=== PATIENT | female | born 2005 | race Caucasian/White ===

== ENCOUNTER 2023-09-11 09:53 | Emergency (ER) | payer BC, SELFPAY ==
[2023-09-11 09:53] VITALS: BP 114/61; PULSE 79; RESP 16; TEMP 36.1; O2SAT 98; BMI 22.3
--- NOTE | 2023-09-11 10:01 | EX.ED.DYSGE1 ---
HPI History of Present Illness Chief Complaint: Fever Informant: patient Onset/Context/Timing Onset: Weeks (1.5) Context: Gradual Onset Timing: Continuous Quality: Aching Location: Head, neck Worsened by: Nothing Relieved by: Nothing Narrative Narrative: Patient presents with a fever that has been constant for the past 1-1/2 weeks. Patient states it came on gradually. Patient admits to a headache and neck pain. Patient states her fever was up to 103.4 at home. Patient did not take any Tylenol or ibuprofen. Patient was afebrile here. Patient went to the urgent care today. Patient was then referred to the emergency department for possible meningitis. Patient admits to a mild cough. Patient states nothing makes her pain better and nothing makes it worse. Patient admits to some nausea but denies any vomiting. [facility] Medical History (Updated 09/11/23 @ 12:[address] Jeronimo Moreno DO) Anxiety Asthma Depression Medical History no medical history no medical history Home Medications escitalopram oxalate 10 mg tablet (Lexapro) 10 mg PO DAILY 09/11/23 [History Last Taken 09/11/23] Allergy/AdvReac Type Severity Reaction Status Date / Time Penicillins Allergy Mild Hives Verified 09/11/23 09:55 Surgical History no surgical history no surgical history Social History Smoking Status: Never smoker ROS ROS ED Constitutional Constitutional ED: Reports fever(s); Denies chills Eyes Eyes: Reports blurry vision; Denies diplopia ENT ENT ED: Denies rhinorrhea or sore throat Cardiovascular Cardiovascular: Denies chest pain or palpitations Respiratory/Chest Respiratory/Chest: Reports cough; Denies dyspnea Gastrointestinal Gastrointestinal: Reports nausea; Denies vomiting Genitourinary Genitourinary ED: Denies dysuria or hematuria Musculoskeletal Musculoskeletal: Reports neck pain; Denies back pain Integumentary Denies abscess or rash Neurologic Neurologic: Reports headache(s); Denies weakness Allergic/Immunologic Allergic/Immunologic ED: Denies mouth swelling or urticaria EXAM Physical Exam Const Vital Signs: 09/11/23 09:53 09/11/23 10:44 09/11/23 12:29 Temperature 96.9 F L Temperature Source Temporal Pulse Rate 79 51 L Respiratory Rate 16 16 Respiratory Effort Normal Respiratory Pattern Normal Blood Pressure 114/61 112/68 Blood Pressure Mean 78 82 Pulse Ox 98 100 Oxygen Delivery Method Room Air Room Air Positive well nourished and well developed General Appearance ED: well developed and NAD HEENT Reports moist mucous membranes Neck supple and no JVD Neck Narrative: There is mild tenderness to palpation over the cervical paraspinal muscles. There is full range of motion of the cervical spine. There are no meningeal signs noted. Resp normal respiratory effort and clear to auscultation bilaterally Cardio regular rate and regular rhythm GI non-tender and non-distended Palpation: soft Neuro oriented x3, CN's II-XII intact bilaterally and no sensory deficits noted Sensorium / Orientation: alert Motor Exam: strength 5/5 throughout Psych mental status grossly normal MDM MDM MDM Narrative Medical decision making narrative: Differential diagnosis includes viral illness, pharyngitis, pneumonia, and dehydration. COVID-19, influenza, and RSV PCR will be obtained to assess for viral infection. Chest x-ray will be obtained to assess for pneumonia. Rapid strep will be obtained to assess for strep pharyngitis. Lab Data Lab results narrative: COVID-19 PCR was reviewed and was negative. Influenza PCR was reviewed and was negative for influenza a and influenza B. RSV PCR was reviewed and was negative. Rapid strep PCR was reviewed and was negative. Radiography Chest X-Ray - ED: 2 View, Read by ED Physician, Read by Radiologist and No Acute Disease Diagnostic Testing: Clinical Impression(s) from Imaging Studies Chest X-Ray 09/11/23 10:42 IMPRESSION: Normal x-ray examination of the chest. Electronically Signed: Rajesh Gallo MD at 12:15 EST , PA and lateral chest x-ray was obtained. There are 2 views. On my independent interpretation, lung olivares are clear. There is normal cardiac silhouette. Bony thorax is normal. There is no acute process noted. Radiologist also interpreted the x-ray and agrees. Treatment and Re-Evaluation :: Patient was given IV fluids. Patient is feeling better on reevaluation. Patient was advised of her findings. Patient was advised that this is most likely a viral illness. Patient was instructed to continue Tylenol and ibuprofen as needed for any fevers. Patient was instructed to drink plenty of fluids. Patient was instructed to follow-up with her primary care physician in 5 to 7 days. Patient understood and was agreeable with the plan. All questions were answered. Discharge Plan Triage Chief Complaint: Fever ED Provider: Jeronimo Moreno Dx/Rx/DC Orders Clinical Impression: Viral illness Instructions: ED Viral Syndrome (Adult) Prescriptions: No Action escitalopram oxalate [Lexapro] 10 mg tablet 10 mg PO DAILY Primary Care Provider: Nikia Dallas Referrals: Nikia Dallas, [facility] [Primary Care Provider] - 5-7 Days Disposition Disposition: Home, Self Care
--- NOTE | 2023-09-11 10:42 | RAD_ITS ---
STUDY: X-RAY CHEST REASON FOR EXAM: Female, 17 years old. Fever TECHNIQUE: PA and lateral views of the chest. COMPARISON: None. FINDINGS: The lungs are clear and expanded. There is no demonstrated pleural abnormality. Normal size heart. Normal mediastinum and markell. Normal visualized pulmonary arteries. Normal visualized aortic arch and descending thoracic aorta. Normal visualized thoracic spine. Normal visualized ribs, clavicles, and shoulders. There is no demonstrated abnormality of the visualized soft tissue structures of the upper abdomen. RAD/Chest PA and Lateral IMPRESSION: Normal x-ray examination of the chest. Electronically Signed: Rajesh Gallo MD at 12:15 [facility] ,
[2023-09-11] MEDS: 0.9% Normal Saline (1000mL) 1,000 ML 1000 ML IV (11:00)
[2023-09-11 12:29] VITALS: BP 112/68; PULSE 51; RESP 16; O2SAT 100
[2023-09-11 13:11] VITALS: BP 115/67; PULSE 50; RESP 17; TEMP 37; O2SAT 100
== END 2023-09-11 13:11 | disposition home or self-care (01) ==
PROVIDERS: Emergency Provider Emergency Medicine; PCP Nurse Practitioner Family; Visit Provider Emergency Medicine
DX: B34.9 Viral infection, unspecified (principal)
CPT/HCPCS: 71046; 87631; 87651; 96360; 99283; J7030; A4216